=== PATIENT | female | born 1955 | race Caucasian/White ===

== ENCOUNTER 2023-01-27 07:30 | Outpatient (REF) | payer MEDICARE, SELFPAY ==
--- NOTE | ~2023-01-27 | XR_ITS ---
EXAMINATION: XR KNEE, RIGHT CLINICAL INFORMATION: Pain right knee COMPARISON: None available. TECHNIQUE: Three views of the right knee. FINDINGS: Mineralization is normal. There is no fracture or dislocation. There is moderate joint space narrowing in the medial compartment with subchondral sclerosis and marginal osteophyte formation. There are marginal osteophytes in the patellofemoral compartment. No soft tissue swelling is seen. There is no evidence of joint effusion. XR/XR knee RT 3V IMPRESSION: Osteoarthritis in the medial and patellofemoral compartments.
== END 2023-01-27 07:31 | disposition home or self-care (01) ==
LOC: HO.HOSX 07:30
PROVIDERS: Visit Provider Orthopaedic Surgery
DX: M17.11 Unilateral primary osteoarthritis, right knee (principal)
CPT/HCPCS: 73562; 99212

== ENCOUNTER 2023-01-27 14:49 | Outpatient (AMB) | payer MEDICARE, SELFPAY ==
--- NOTE | 2023-01-27 15:01 | A.OFFVIS_ITS ---
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 Beltran for her right knee pain. States pain has been ongoing for the last 6 weeks and has worsen since. She explains she slipped getting on to a Jeep. States she felt pain right after. Currently her pain has improved. Pain was mainly behind her knee. Patient has hx of right knee injections in the past with Dr. Beltran with some relief. She wishes to hold off on surgery for as long as possible. Allergies No Known Allergies Allergy (Verified 01/27/23 15:49) Medication List - Last Reconciled 01/27/23 by Rashaad Beltran MD amlodipine 2.5 mg PO DAILY atenolol 25 mg PO DAILY atorvastatin 10 mg PO BEDTIME losartan 25 mg PO DAILY methenamine mandelate 1 g PO QID methylprednisolone (Medrol (Chao)) PO PER [facility] Social History (Updated 01/27/23 @ 15:52 [address] Jeane [address]ilar [facility]) Current occupational status: retired Physical Exam Vital Signs: BMI result Body Mass Index 42.9 Const Other: Well-nourished well-developed very friendly female awake alert and oriented x3 in no acute distress Extrem Other: Bilateral lower extremity examination shows good capillary refill, no skin lesions noted, normal sensation light touch Right knee examination shows a minimal effusion, palpable crepitus with range of motion, pain with range of motion, range of motion from -3 degrees to 115 degrees, no instability Results Reviewed Results Reviewed: X-rays of the patient's right knee show moderate diffuse joint space narrowing most significant in the medial compartment, subchondral sclerosis, no acute bony abnormalities Assessment & Plan Assessment & Plan (1) Arthritis of right knee: Code(s): M17.11 - Unilateral primary osteoarthritis, right knee Plan Mrs. Espinosa presents with right knee pain due to degenerative joint disease. I had a lengthy discussion with the patient regarding the treatment options. She wishes to hold off on surgery for as long as possible. I agree with this plan. I did give her a prescription for a Medrol Dosepak. Activity modifications were discussed at length with the patient. She wishes to hold off on a cortisone injection for now. I will see her back in a few weeks prior to her trip to [place]. If she has continued significant discomfort at that time we will further discuss the risks and benefits of a cortisone injection. She will contact me prior to that time should any questions or concerns arise. I spent 22 minutes in reviewing the patient's records and imaging studies, seeing the patient and documenting in the medical record. Orders: Orders XR knee RT 3V 01/27/23 M25.561 - Pain in right knee Medications: New methylprednisolone (Medrol (Chao)) PO PER PKG DIR 21 ea 0RF Coding Level of Care Code Est Pt Level 2 (72592) Diagnoses Arthritis of right knee M17.11
[2023-01-27 15:47] VITALS: BMI 42.9
== END 2023-01-27 16:19 | disposition home or self-care (01) ==
PROVIDERS: Visit Provider Orthopaedic Surgery
DX: M17.11 Unilateral primary osteoarthritis, right knee (principal)
CPT/HCPCS: 99212

== ENCOUNTER 2023-02-08 10:59 | Outpatient (AMB) | payer MEDICARE, SELFPAY ==
--- NOTE | 2023-02-08 11:06 | A.OFFVIS_ITS ---
Intake Vital Signs 02/08/23 11:10 Height 5 ft 1 in Weight 227 lb BMI 42.9 Intake Visit Reasons: OV- Right knee and leg pain/ soft tissue Intake Note: Елена 67 year old female presents today for a follow up of right knee pain. Patient reports pain has improved after being on a Medrol Dosepak. She has returned to working out at the gym 3 times per week. She denies any locking or giving way. She denies any fevers or chills. Allergies No Known Allergies Allergy (Verified 02/08/23 11:11) Medication List - Last Reconciled 02/08/23 by Rashaad Beltran MD amlodipine 2.5 mg PO DAILY atenolol 25 mg PO DAILY atorvastatin 10 mg PO BEDTIME losartan 25 mg PO DAILY methenamine mandelate 1 g PO QID PFSH Social History Current occupational status: retired Physical Exam Vital Signs: BMI result Body Mass Index 42.9 Const Other: Well-nourished well-developed very friendly female awake alert and oriented x3 in no acute distress Extrem Other: Bilateral lower extremity examination shows good capillary refill, no skin lesio ns noted, normal sensation light touch Right knee examination shows a minimal effusion, mild crepitus with range of motion, mild discomfort with range of motion, range of motion from -3 degrees to 120 degrees, no instability Results Reviewed Results Reviewed: X-rays of the patient's right knee show joint space narrowing, subchondral sclerosis, no acute bony abnormalities Assessment & Plan Assessment & Plan (1) Arthritis of right knee: Code(s): M17.11 - Unilateral primary osteoarthritis, right knee Plan: Ms. Espinosa presents with intermittent discomfort in her right knee due to degenerative joint disease. I had a lengthy discussion with the patient regarding the treatment options. At this point patient's symptoms are tolerable to her. We will hold off on a cortisone injection. She will continue with her exercise program and activity modifications. She will follow up with me on an as-needed basis should her symptoms worsen in any way. The I spent 21 minutes in reviewing the patient's records and imaging studies, seeing the patient and documenting in the medical record. Coding Level of Care Code Est Pt Level 2 (95425) Diagnoses Arthritis of right knee M17.11
[2023-02-08 11:10] VITALS: BMI 42.9
== END 2023-02-08 11:24 | disposition home or self-care (01) ==
PROVIDERS: Visit Provider Orthopaedic Surgery
DX: M17.11 Unilateral primary osteoarthritis, right knee (principal)
CPT/HCPCS: 99212

== ENCOUNTER → 2023-02-08 10:59 | Outpatient (BNVA) | payer MEDICARE, SELFPAY | PROVIDERS: Visit Provider Orthopaedic Surgery | DX: M17.11 Unilateral primary osteoarthritis, right knee (principal) | CPT/HCPCS: 99212 ==

== ENCOUNTER 2025-04-24 07:31 | Outpatient (REF) | payer MEDICARE, SELFPAY ==
--- NOTE | ~2025-04-24 | XR_ITS ---
EXAMINATION: X-ray lumbar spine X-ray pelvis CLINICAL INFORMATION: [Low back pain. Hip pain. COMPARISON: None TECHNIQUE: Lumbar spine 3 views. Pelvis 1 view. FINDINGS: Lumbar spine: Bone mineralization is decreased. Posterior spinal fusion hardware at L4-5. Intact hardware. No suspicious perihardware lucencies. Mild L4-5 and mild L5-S1 anterolisthesis. Vertebral body heights are maintained. No evidence of acute fracture. Multilevel disc degeneration, more prominent findings at T12-L1, L1-2, L3-4, L4-5.. Multilevel facet degeneration Gastric band present, with tubing projects over the abdomen. Nonobstructive bowel gas pattern. Pelvis: Bone mineralization is decreased. No evidence of acute fracture or dislocation. Hip joint spaces are maintained. Bilateral SI joint arthritis. Mild symphysis pubis degeneration. No acute pelvic fracture seen. XR/XR lumbar spine 2-3V IMPRESSION: Lumbar spine: 1. No acute findings 2. Posterior spinal fusion at L4-5. No findings to suggest hardware complications. 3. Lumbar spondylosis. Pelvis: 1. No acute findings. 2. Degenerative changes as above. Electronically signed by: Matthew Maldonado MD 04/26/2025 11:31 AM [facility]
--- NOTE | ~2025-04-24 | XR_ITS ---
EXAMINATION: X-ray lumbar spine X-ray pelvis CLINICAL INFORMATION: [Low back pain. Hip pain. COMPARISON: None TECHNIQUE: Lumbar spine 3 views. Pelvis 1 view. FINDINGS: Lumbar spine: Bone mineralization is decreased. Posterior spinal fusion hardware at L4-5. Intact hardware. No suspicious perihardware lucencies. Mild L4-5 and mild L5-S1 anterolisthesis. Vertebral body heights are maintained. No evidence of acute fracture. Multilevel disc degeneration, more prominent findings at T12-L1, L1-2, L3-4, L4-5.. Multilevel facet degeneration Gastric band present, with tubing projects over the abdomen. Nonobstructive bowel gas pattern. Pelvis: Bone mineralization is decreased. No evidence of acute fracture or dislocation. Hip joint spaces are maintained. Bilateral SI joint arthritis. Mild symphysis pubis degeneration. No acute pelvic fracture seen. XR/XR pelvis 1-2V IMPRESSION: Lumbar spine: 1. No acute findings 2. Posterior spinal fusion at L4-5. No findings to suggest hardware complications. 3. Lumbar spondylosis. Pelvis: 1. No acute findings. 2. Degenerative changes as above. Electronically signed by: Matthew Maldonado MD 04/26/2025 11:31 AM [facility]
--- OUTSIDE RECORDS SUMMARY | 2025-04-27 07:33 | XMS_ITS | Encounter Summary ---
Author Organization [facility] Address [address] [place] [address] Care Team Providers Care Splicing Machine Operator Automatic Name Role Phone Ellie Avalos NP Primary Care Provider [phone] Encounter Details Date Type Department Care Team ([facility] st Contact Info) Description 07/25/2024 Scanned Document [facility] [place] [address] Lawson Wing MD [address] [place] [address] Social History Tobacco Use Types Packs/Day Years [...] on filedocumented in this encounter Care Teams Splicing Machine Operator Automatic Relationship Specialty Start Date End Date Ellie Avalos NP PCP - General 05/29/24 documented as of this encounter
--- OUTSIDE RECORDS SUMMARY | 2025-04-27 07:34 | XMS_ITS | Clinical Summary ---
Author Organization [facility] Address [address] [place] [address] Care Team Providers Care Length Control Tester Name Role Phone Oneal Bentley MD Primary Care Provider [phone] Allergies Active Allergy Reactions Criticality Noted Date [...] age to complete this topic Care Teams Length Control Tester Relationship Specialty Start Date End Date Oneal Bentley MD NPI: [id number] [place] [id number] PCP - General Internal Medicine 08/18/17
--- OUTSIDE RECORDS SUMMARY | 2025-04-27 07:34 | XMS_ITS | Clinical Summary ---
Author Organization [facility] Address [address] [place] [address] Phone Care Team Providers Care Transportation Dispatcher Name Role Phone Ellie Avalos NP Primary Care Provider [phone] Allergies Active Allergy Reactions Criticality Noted Date Comments Adhesive Tape-Silicones 08/18/2017 Ragweed 2022 Medications nystatin (MYCOSTATIN) 100,000 unit/gram powder Apply topically 2 (two) times a day if needed. 12/27/19 24 Active diclofenac (VOLTAREN) 1 % topical gel Apply 4 g topically 2 times daily as needed (arthritis pain). 06/28/19 24 Active methenamine hippurate (HIPREX) 1 gram tablet TAKE 1 TABLET TWICE DAILY WITH MEALS 180 tablet 10/19/19 25 Active amLODIPine (NORVASC) 5 mg tablet TAKE 1 TABLET DAILY 90 tablet 1 01/15/20 25 Active atenoloL (TENORMIN) 50 mg tablet TAKE 1 TABLET DAILY 90 tablet 1 02/13/20 25 Active atorvastatin (LIPITOR) 20 mg tablet TAKE 1 TABLET DAILY 90 tablet 1 03/04/20 25 Active losartan-hydro CHLOROthiazide (HYZAAR) 100-12.5 mg per tablet TAKE 1 TABLET DAILY 90 tablet 1 04/15/20 25 Active losartan-hydro CHLOROthiazide (HYZAAR) 100-12.5 mg per tablet TAKE 1 TABLET DAILY 90 tablet 1 11/27/19 25 025 Discontinued Active Problems Problem Noted Date Diagnosed Date Von Willebrand disease (CMS/HCC V24, CMS/[facility] V28 ) 06/29/2024 Essential (primary) hypertension 06/23/2022 Mixed hyperlipidemia 06/23/2022 Osteopenia 06/23/2022 Primary osteoarthritis of right knee 06/26/2019 Acute injury of right knee cartilage 01/04/2019 Instability of right knee joint 01/04/2019 Immunizations Immunization Administration Dates Next Due COVID-19 (Pfizer/Comirnaty) 12yo and older 01/28 Influenza, Unspecified 02/29/2024,01/28/2023,07/2021 Pfizer SARS-CoV-2 COVID-19, mRNA, LNP-S, preservative free 02/29/2024,01/28/2023,04/08/2022 Pneumococcal conjugate 20 va lent (Prevnar 20, PCV 20) 2mo and older 12/22/2022 Tdap Tetanus diptheria acell ular pertussis (Boostrix; Adacel) 7yo and older 06/23/2022 Surgical History Surgery Date Site/Laterality Comments APPENDECTOMY 03/07/2022 PROCEDURE: HISTORICAL APPENDECTOMY HYSTERECTOMY 2011 PROCEDURE: HISTORICAL HYSTERECTOMY OTHER SURGICAL HISTORY 2007 PROCEDURE: LUMBAR SPINE FUSION, LAT TRANSVERSE OTHER SURGICAL HISTORY 2015 PROCEDURE: OR OPEN TREATMENT CALCANEAL FRACTURE FOOT SURGERY 06/30/2024 - 07/27/2024 Right hammer toe correction COLONOSCOPY 01/11/2022 Medical History Medical History Date Comments Essential (primary) hypertension DX:Essential (primary) hypertension Mixed hyperlipidemia DX:Mixed hy perlipidemia Spinal stenosis of lumbar region DX:Spinal stenosis of lumbar region Leiomyoma of uterus DX:Leiomyoma of uterus Osteopenia DX:Osteopenia Family History Medical History Relation Name Comments Breast cancer Cousin Hyperlipidemia Father Hypertension Father Other cancer Father Stroke Father Hyperlipidemia Mother Hypertension Mother Other cancer Mother Hyperlipidemia Sister Hypertension Sister Relation Name Status Comments Cousin Alive Father Mother Sister Social History Tobacco Use Types Packs/Day Years Used Date Smoking Tobacco: Never Smokeless Tobacco: Never Alcohol Use Standard Drinks/Week Comments Never 0 (1 standard drink = 0.6 oz pur e alcohol) Housing Instability Answer Date Recorde d Are you worried that in the next 2 months you may not have stable housing? No 06/27/2024 Food Access & Nutrition Answer Date Rec orded Do you have access to a vari ety of food including fruits and vegetables? Yes 06/27/2024 Access to Healthcare Answer Date Record ed Within the last 3 months, ho w many times did you visit the emergency department for your medical care? 0 06/27/2024 Health Literacy Answer Date Recorded How often do you need to hav e someone help you when you read instructions, pamphlets, or other written material from your doctor or pharmacy? Never 06/27/2024 Caregiver: How often do you need to have someone help you when you read instructions, pamphlets, or other written material from your doctor or pharmacy? Not on file 06/27/2024 Financial Risk Answer Date Recorded How hard is it for you to pa y for the very basics like food, housing, medical care, and air conditioning / heating? Not very hard 06/27/2024 Transportation Answer Date Recorded Has the lack of transportati on kept you from meetings, work, or from getting things needed for daily living? No Has the lack of transportati on kept you from medical appointments or from getting medications? No 06/27/2024 Social Isolation Answer Date Recorded How often do you feel lonely or isolated from th ose around you? Never 06/27/2024 Food Risk Answer Date Recorded Within the past 12 months we worried whether our food would run out before we got money to buy more. Never true 06/27/2024 Within the past 12 months th e food we bought just didn't last and we didn't have money to get more. Never true 06/27/2024 Dependent Care Answer Date Recorded Do you need help finding or paying for care for your loved ones. For example, child & adolescent psychiatrist or elderly care for an older adult? No 06/27/2024 Education Answer Date Recorded Do you think completing more education or training, like finishing a GED, going to college, or learning a trade, would be helpful for you? No 06/27/2024 Employment and Income Answer Date Recor ded During the last four weeks, have you been actively looking for work? No 06/27/2024 Living Situation Answer Date Recorded What is your living situation? Unrecognized valu e 06/27/2024 Comments No Sex and Gender Information Value Date Recorded Sex Assigned at Female 06/19/2024 4:02 PM EST Legal Sex Female 10:49 PM EST Gender Identity Female 06/19/2024 4:02 PM EST Sexual Orientation Straight 06/19/2024 4: 02 PM EST Obstetrics History Para Term AB IAB SAB Ectopic Multiple Livin g Live Births 1 Last Filed Vital Signs Vital Sign Reading Time Taken Comments Blood Pressure 134/85 01/01/2025 8:36 AM EDT A Pulse 66 01/01/2025 8:36 AM EDT Temperature 36.8 C (98.2 F) 07/05/2024 2:26 PM EST Respiratory Rate - - Oxygen Saturation 98% 07/05/2024 2:26 PM EST Inhaled Oxygen Concentration - - Weight 96.9 kg (213 lb 9.6 oz) 01/24/2025 12:41 PM EDT Height 154.9 cm (5' 1 ) 01/24/2025 12:41 PM EDT Body Mass Index 40.36 01/24/2025 12:41 PM EDT Plan of Treatment Upcoming Encounters Date Type Department Care Team (Late st Contact Info) Description 05/09/2025 8:00 AM EST Consult Gastroenterology - [address] [address] [facility] [address] [place] [phone] Damien Caicedo MD [address] [facility] [address] [place] [id number] 07/10/2025 9:00 AM EST [facility] [address] [place] [address] Ellie Avalos, VIKI [address] [place] [address] Health Maintenance Due Date Last Done Comments RSV Immunization Adult Patients (1 - Risk 50-74 years 1-dose series) 2005 Zoster Vaccines (1 of 2) 2005 Medicare Annual Wellness Visit 05/02/2022 COVID-19 Vaccine ( season) 2025 02/29/2024, 01/29/2024, 02/15/2023, Additional history exists Influenza Vaccine (#1) 2025 , 01/28/2023, 04/01/2022, Additional history exists Social Influencers of Health Screening 06/27/2025 06/27/2024 Falls Risk Assessment 01/01/2026 01/01/2025 Hypertension/CHF/CAD Annual BMP Blood Test 01/01/2026 01/01/2025, 06/29/2024, 12/21/2023, Additional history exists Breast Cancer Screening 06/27/2026 06/27/19, 06/02/2023, 05/25/2022, Additional history exists Colorectal Cancer Screening: Colonoscopy 01/11/2027 01/11/2022, 01/11/2022, 04/01/2011 Cholesterol Screening (Lipid Panel) 01/01/2030 01/01/2025, 06/29/2024, 12/21/2023, Additional history exists Osteoporosis Screening (Bone Density Screening) 05/25/2032 05/25/2022, 04/16/2020, 02/23/2018 DTaP,Tdap,and Td Vaccines (2 - Td or Tdap) 06/23/2032 06/23/2022 Hepatitis C Screening Completed 12/22/2022 Pneumococcal Vaccine: 50+ Years Completed 12/22/2022 Depression Screening Completed 01/01/2025 HIB Vaccines Aged Out No longer eligi ble based on patient's age to complete this topic HPV Vaccines Aged Out No longer eligi ble based on patient's age to complete this topic Hepatitis A Vaccines Aged Out No long er eligible based on patient's age to complete this topic Hepatitis B Vaccines Aged Out No long er eligible based on patient's age to complete this topic IPV Vaccines Aged Out No longer eligi ble based on patient's age to complete this topic MMR Vaccines Aged Out No longer eligi ble based on patient's age to complete this topic Meningococcal ACWY Vaccine Aged Out N o longer eligible based on patient's age to complete this topic Meningococcal B Vaccine Aged Out No l onger eligible based on patient's age to complete this topic RSV Immunization Patients Under 20 months Aged Out No longer eligible based on patient's age to complete this topic Varicella Vaccines Aged Out No longer eligible based on patient's age to complete this topic Procedures Procedure Name Priority Date/Time Associated Diagnosis Comments BASIC METABOLIC PANEL Routine 01/01/2025 8:50 AM EDT Essential (primary) hypertension LIPID PANEL WITH REFLEX TO DIRECT LDL Routine 01/01/2025 8:50 AM EDT Mixed hyperlipidemia MG MAMMO DIGITAL SCREENING W PENG BILAT Routine 06/27/2024 10:50 AM EST Encounter for screening mammogram for malignant neoplasm of breast HEPATITIS C SCREENING Routine 12/22/2022 [facility] DEXA AXIAL SKELETON Routine 05/25/2022 4:53 PM EST Other specified disorders of bone density and structure, right thigh COLONOSCOPY Routine 01/11/2022 from Last 3 Months or Most Recently Relevant to Health Maintenance Results * Lipid panel with reflex to direct LDL (01/01/2025 8:50 AM EDT) Cholesterol 141 0 - 200 mg/dL LAB CHEMISTRY METHOD 01/01/2025 12:13 PM [facility] Triglycerides 80 0 - 150 mg/dL LAB CHEMISTRY METHOD 01/01/2025 12:13 PM [facility] HDL 71 >=40 mg/dL LAB CHEMISTRY METHOD 01/01/2025 12:13 PM [facility] LDL Calculated 54 0 - 100 mg/dL LAB CHEMISTRY METHOD 01/01/2025 12:13 PM [facility] Comment:Estimated LDL Calcul ated using equation: Total cholesterol - HDL cholesterol - (Triglycerides/5) VLDL Cholesterol Philippe 16 mg/dL LAB CHEMISTRY METHOD 01/01/2025 12:13 PM [facility] Non HDL Chol. (LDL+VLDL) 70 <145 mg/dL LAB CHEMISTRY METHOD 01/01/2025 12:13 PM [facility] Chol/HDL Ratio 2.0 0.0 - 4.4 LAB CHEMISTRY METHOD 01/01/2025 12:13 PM [facility] Blood Venous blood specimen / Unknown Venipuncture / Unknown 01/01/2025 8:50 AM EDT 01/01/2025 8:50 AM EDT us Ellie Avalos NP LAB BLOOD ORDERABLES Final Resu lt [facility] [address] [place] [address], [place] [phone] * (ABNORMAL) Basic metabolic panel (01/01/2025 8:50 AM EDT) Sodium 138 133 - 145 mmol/L LAB CHEMISTRY METHOD 01/01/2025 12:13 PM [facility] Potassium 4.3 3.5 - 5.5 mmol/L LAB CHEMISTRY METHOD 01/01/2025 12:13 PM [facility] Chloride 104 96 - 110 mmol/L LAB CHEMISTRY METHOD 01/01/2025 12:13 PM [facility] CO2 28 21 - 32 mmol/L LAB CHEMISTRY METHOD 01/01/2025 12:13 PM [facility] Anion Gap 6 3 - 11 LAB CHEMISTRY METHOD 01/01/2025 12:13 PM [facility] Glucose 85 70 - 100 mg/dL LAB CHEMISTRY METHOD 01/01/2025 12:13 PM [facility] BUN 27(H) 5 - 25 mg/dL LAB CHEMISTRY METHOD 01/01/2025 12:13 PM [facility] Creatinine 0.88 0.50 - 1.10 mg/dL LAB CHEMISTRY METHOD 01/01/2025 12:13 PM [facility] eGFR 71 >=60 mL/min/1. 73m2 LAB CHEMISTRY METHOD 01/01/2025 12:13 PM [facility] Comment:Calculation based on the Chronic Kidney Disease Epidemiology Collaboration (CKD-EPI) equation refit without adjustment for race. BUN/Creatinine Ratio 30.7 LAB CHEMISTRY METHOD 01/01/2025 12:13 PM EDT [facility] Calcium 9.5 8.5 - 10.5 mg/dL LAB CHEMISTRY METHOD 01/01/2025 12:13 PM EDT [facility] Blood Venous blood specimen / Unknown Venipuncture / Unknown 01/01/2025 8:50 AM EDT 01/01/2025 8:50 AM EDT us Ellie Avalos [employer] LAB BLOOD ORDERABLES Final Resu lt [facility] [address] [place] [address], [place] [phone] * MG Mammo Digital Screening w Peng bilat (06/27/2024 10:50 AM EST) Anatomical Region Laterality Modality Breast Bilateral Mammography 06/27/2024 11:4 6 AM EST Impressions 06/27/2024 11:50 AM EST No mammographic evidence of malignancy. No suspicious interval change. A negative mammogram in the presence of a clinically suspicious palpable abnormality does not preclude the possibility of malignancy or alter the indications for biopsy. ASSESSMENT: BI-RADS 1: NEGATIVE RECOMMENDATION(S): 1: Routine screening mammogram BILATERAL in 1 year. -------- FINAL REPORT -------- Dictated By: Roger Rojas Dictated Date: 06/27/2024 11:46 ET Assigned Physician: Roger Rojas Reviewed and Electronically Signed By: Roger Rojas Signed Date: 06/27/2024 11:50 ET Workstation ID: [id number] Transcribed By: Self Edit Transcribed Date: 06/27/2024 11:46 ET Narrative 06/27/2024 11:50 AM EST EXAM: SCREENING MAMMOGRAPHY, BILATERAL HISTORY: SCREENING. No additional history. COMPARISON: 06/01/2023, 05/25/2022, 04/28/2021, 04/16/2020 TECHNIQUE: Synthesized CC and MLO projections of each breast. Tomosynthesis of each breast in the CC and MLO projections. ADDITIONAL IMAGING: None Computer-aided detection was employed with the iCAD profound AI 3-D. TISSUE DENSITY: The breasts are almost entirely fatty. (BI-RADS Category A) FINDINGS: RIGHT BREAST: No suspicious mass. No suspicious calcification. No distortion. No additional suspicious right breast findings LEFT BREAST: No suspicious mass. No suspicious calcification. No distortion. No additional suspicious left breast findings Procedure Note Roger Rojas MD - 06/27/2024 EXAM: SCREENING MAMMOGRAPHY, BILATERAL HISTORY: SCREENING. No additional history. COMPARISON: 06/01/2023, 05/25/2022, 04/28/2021, 04/16/2020 TECHNIQUE: Synthesized CC and MLO projections of each breast.Tomosynthesis of each breast in the CC and MLO projections. ADDITIONAL IMAGING: None Computer-aided detection was employed with the [employer] AI 3-D. TISSUE DENSITY: The breasts are almost entirely fatty. (BI-RADS CategoryA) FINDINGS: RIGHT BREAST: No suspicious mass. No suspicious calcification. No distortion. Noadditional suspicious right breast findings LEFT BREAST: No suspicious mass. No suspicious calcification. No distortion. Noadditional suspicious left breast findings IMPRESSION: No mammographic evidence of malignancy. No suspicious interval change. A negative mammogram in the presence of a clinically suspicious palpableabnormality does not preclude the possibility of malignancy or alter theindications for biopsy. ASSESSMENT: BI-RADS 1: NEGATIVE RECOMMENDATION(S): 1: Routine screening mammogram BILATERAL in 1 year. -------- FINAL REPORT -------- Dictated By: Roger Rojas Dictated Date: 06/27/2024 11:46 ET Assigned Physician: Roger Rojas Reviewed and Electronically Signed By: Roger Rojas Signed Date: 06/27/2024 11:50 ET Workstation ID: [id number] Transcribed By: Self Edit Transcribed Date: 06/27/2024 11:46 ET Ellie Avalos NP IMG BI PROCEDURES Final Result * Hepatitis C Screening (12/22/2022) Hepatitis C Screening negative Historical Provider HEALTH MAINTENANCE Final Result * [facility] DEXA AXIAL SKELETON (05/25/2022 4:53 PM EST) Anatomical Region Laterality Modality Mammography 05/25/2022 2:53 PM EST Narrative 05/25/2022 4:53 PM EST [facility] Diagnostic Imaging Department [address] [place] [id number] Patient: YIFAN ESPINOSA Mirtha /Age/Sex: 1955 - 67 - F Unit#: [id number] Location/Status: SPDIMAM/REG CLI Mnemonic[facility] Ordering Physician: AGUS CURIEL MD Kerrie Dexa Axial Skeleton - 05/25/22 1925 History: Low estrogen state due to menopause. Comparison: 04/16/20 Findings: Bone densitometry is performed utilizing dual energy x-ray absorptiometry (DXA) in the [employer]ikigDemyst[employer] unit. The lumbar spine and proximal femora are evaluated in the AP projection. The FRAX questionaire was completed. Lumbar spine data is discarded due to surgical hardware. The results indicate low bone mass (osteopenia), with a right femoral neck T- score of -2.2. The Z score is -1.4, indicating low bone mineral density for age. There has been no statistically significant change. The detailed DEXA report will be mailed to the referring physician's office. DualFemur FRAX: 10-year Probability of Fracture: Major Osteoporotic 16.8 percent Hip 2.8 percent. IMPRESSION: Osteopenia. [id number] Dictating Physician: KARI KANG MD Electronically Signed by: KARI KANG MD Dic Date/Time: 05/25/221651 Sign date/Time: 05/25/221652 Procedure Note Kari Kang MD - 07/01/2023 [facility] Diagnostic Imaging Department [address] [place] [id number] Patient: YIFAN ESPINOSA Mirtha Ansari/Age/Sex: 1955 - 67 - F Unit#: [id number] Location/Status: SPDIMAM/REG CLI Mnemonic/Ordering Site: [facility] Ordering Physician: AGUS CURIEL MD Kerrie Dexa Axial Skeleton - 05/25/22 - [id number] History: Low estrogen state due to menopause. Comparison: 04/16/20 Findings: Bone densitometry is performed utilizing dual energy x-ray absorptiometry(DXA) in the [employer]igDemyst[employer] unit. The lumbar spine and proximal femora areevaluated in the AP projection. The FRAX questionaire was completed. Lumbar spine data is discarded due to surgical hardware. The results indicate low bone mass (osteopenia), with a right femoral neckT- score of -2.2. The Z score is -1.4, indicating low bone mineral densityfor age. There has been no statistically significant change. The detailed DEXAreport will be mailed to the referring physician's office. DualFemur FRAX: 10-year Probability of Fracture: Major Osteoporotic 16.8 percent Hip 2.8 percent. IMPRESSION: Osteopenia. [id number] Dictating Physician: KARI KANG MD Electronically Signed by: KARI KANG MD Dic Date/Time: 05/25/221651 Sign date/Time: 05/25/221652 Agus Curiel MD IMG BI PROCEDURES Final Result * Colonoscopy (01/11/2022) HM Colonoscopy No Interpretation , Abstracted Anatomical Region Laterality Modality Other Historical Provider HEALTH MAINTENANCE Final Result from Last 3 Months or Most Recently Relevant to Health Maintenance Insurance [employer] MED[employer]ARE [employer]VANTAGE Care Teams Transportation Dispatcher Relationship Specialty Start Date End Date Ellie Avalos NP [address] [place] [address] PCP - General 06/22/22
--- OUTSIDE RECORDS SUMMARY | 2025-04-27 07:34 | XMS_ITS | Clinical Summary ---
Author Organization [facility] Address [address] [place] [address] Care Team Providers Care Material Reclaimer Name Role Phone Ellie Avalos NP Primary Care Provider [phone] Allergies No known active allergies Medications SUPPLY [...] topic Insurance [employer] MGD MEDICARE Care Teams Material Reclaimer Relationship Specialty Start Date End Date Ellie Avalos NP PCP - General 05/29/24
== END 2025-04-24 07:32 | disposition home or self-care (01) ==
LOC: HO.HOSX 07:31
PROVIDERS: Visit Provider Orthopaedic Surgery
DX: M70.61 Trochanteric bursitis, right hip (principal); M54.50 Low back pain, unspecified
CPT/HCPCS: 72100; 72170; 99212

== ENCOUNTER 2025-04-24 13:11 | Outpatient (AMB) | payer MEDICARE, SELFPAY ==
[2025-04-24 13:34] VITALS: BMI 42.9
--- NOTE | 2025-04-24 13:34 | A.OFFVIS_ITS ---
Vital Signs 04/24/25 13:34 Height 5 ft 1 in Weight 227 lb BMI 42.9 Intake Visit Reasons: New Prob-upper hip pain, Low back pain Intake Note: Елена is a 70 year old female who presents with complaints of intermittent low back pain as well as pain along the lateral aspect of her right hip. The patient did undergo low back surgery by Dr. Adkins approximately 20 years ago. She describes her back pain as achy in nature. She denies any weakness in either lower extremity. The patient knows a says her discomfort most when going up and down stairs and trying to sleep. She denies any groin pain. Allergies No Known Allergies Allergy (Verified 04/24/25 13:38) Medication List - Last Reconciled 04/24/25 by Rashaad Beltran MD amlodipine 2.5 mg PO DAILY atenolol 25 mg PO DAILY atorvastatin 10 mg PO BEDTIME losartan 25 mg PO DAILY methenamine mandelate 1 g PO QID [facility] Medical History (Updated 04/24/25 @ 15:36 by Rashaad Beltran MD) Hip pain Social History (Updated 04/24/25 @ 13:39 by ZARA Calhoun) Patient Tobacco Use Status: Never used Tobacco Current occupational status: retired Physical Exam Vital Signs: BMI result Body Mass Index 42.9 Back/Spine/Pelvis Other: Low back examination shows mild paraspinal muscle tenderness, negative straight leg raise test bilaterally at 70 degrees Extrem Other: Right hip examination shows slightly decreased range of motion when compared to her left hip, tenderness over her bursa, no overlying skin lesions Results Reviewed Results Reviewed: X-rays of the patient's bilateral hips taken today show mild diffuse joint space narrowing, no acute bony abnormalities X-rays of the patient's lumbar spine taken today show hardware from her previous surgery with no signs of loosening, moderate to severe diffuse degenerative disc disease, no acute bony abnormalities Assessment & Plan Assessment & Plan (1) Low back pain: Code(s): M54.50 - Low back pain, unspecified Category: Medical (2) Trochanteric bursitis, right hip: Code(s): M70.61 - Trochanteric bursitis, right hip Category: Medical Plan Mrs. Espinosa presents with pain along the lateral aspect of her right hip most likely due to greater trochanteric bursitis as well as intermittent low back pain due to degenerative disc disease. I had a lengthy discussion with the patient regarding the treatment options. We will hold off on a cortisone injection for now. I did give her a prescription for a Medrol Dosepak. She will continue with her home stretching program. She will contact me prior to her follow-up appointment in 4-6 weeks should her symptoms worsen in any way. Feel free to call me at any time should questions regarding her orthopedic management arise. I spent 20 minutes in reviewing the patient's records and imaging studies, seeing the patient and documenting in the medical record. Orders: Orders XR pelvis 1-2V Today M25.559 - Pain in unspecified hip XR lumbar spine 2-3V Today M54.50 - Low back pain, unspecified Medications: New methylprednisolone (Medrol (Chao)) PO PER PKG DIR 21 ea 0RF Coding Level of Care Code Est Pt Level 3 (60775) Complex visit Add On G2211 Diagnoses Low back pain M54.50 Trochanteric bursitis, right hip M70.61
--- OUTSIDE RECORDS SUMMARY | 2025-04-24 16:18 | XMS_ITS | Clinical Summary ---
Author Organization [facility] Address [address] [place] [address] Care Team Providers Care Internet Marketing Analyst Name Role Phone Oneal Bentley MD Primary Care Provider [phone] Allergies Active Allergy Reactions Criticality Noted Date Comments Adhesive Tape 08/18/2017 Nka Medications Medication Sig Dispensed Refills Start Date End Date Status ibuprofen (ADVIL,MOTRIN) 800 MG tablet ibuprofen 800 mg tablet 0 Active atenolol (TENORMIN) tablet 50 mg atenolol 50 mg tablet 0 Active losartan-hydrochloro thiazide (HYZAAR) 100-12.5 MG per tablet losartan 100 mg-hydrochlorothiazi de 12.5 mg tablet 0 Active methenamine (HIPREX) 1 g tablet methenamine hippurate 1 gram tablet 0 Active CRANBERRY CONCENTRATE PO Take by mouth. 0 Active Active Problems Problem Noted Date Diagnosed Date Primary osteoarthritis of right knee 06/26/2019 Acute injury of right knee cartilage 01/04/2019 Instability of right knee joint 01/04/2019 Family History Medical History Relation Name Comments Cancer Father Clotting disorder Father Heart disease Father Hypertension Father Cancer Mother Hypertension Mother Relation Name Status Comments Father Mother Social History Tobacco Use Types Packs/Day Years Used Date Smoking Tobacco: Never Smokeless Tobacco: Never Tobacco Cessation:Counseling Given: No Alcohol Use Standard Drinks/Week Comments No 0 (1 standard drink = 0.6 oz pur e alcohol) Sex and Gender Information Value Date Recorded Sex Assigned at Not on file Gender Identity Not on file Sexual Orientation Not on file Job Start Date Occupation Industry Not on file Not on file Not on file Last Filed Vital Signs Vital Sign Reading Time Taken Comments Blood Pressure - - Pulse - - Temperature - - Respiratory Rate - - Oxygen Saturation - - Inhaled Oxygen Concentration - - Weight 108 kg (238 lb) 04/10/2019 8:46 AM EST Height 157.5 cm (5' 2 ) 04/10/2019 8:46 AM EST Body Mass Index 43.53 04/10/2019 8:46 AM EST Plan of Treatment Health Maintenance Due Date Last Done Comments Hepatitis C Screening 1955 COVID-19 Vaccine (#1) 1955 Depression Screening 1967 BMI Counseling 1973 Preventative Health Evaluation 1973 DTap / Tdap / Td (1 - Tdap) 1974 Colon Cancer Screening (Colonoscopy) 2000 Breast Cancer Screening (Mammogram) 2005 Shingrix-Zoster Vaccine (1 of 2) 2005 Fall Risk Assessment 2020 Osteoporosis Screening (DEXA Scan) 2020 Pneumococcal Vaccine (1 of 1 - PCV) 2020 Influenza Vaccine (#1) 2025 RSV Adult > 60+ Yrs or Pregn ant (1 - 1-dose 75+ series) 2030 Hepatitis B Vaccines Aged Out No long er eligible based on patient's age to complete this topic RSV Ped < 20 months Aged Out No longe r eligible based on patient's age to complete this topic Care Teams Internet Marketing Analyst Relationship Specialty Start Date End Date Oneal Bentley MD NPI: [id number] [place] [id number] PCP - General Internal Medicine 08/18/17
--- OUTSIDE RECORDS SUMMARY | 2025-04-24 16:18 | XMS_ITS ---
Author Name [facility] Organization Unknown History of Medication Use Medication Directions Dispensed Refills Start Date End Date Stat us traMADol (ULTRAM) 50 MG tablet Take 1 tablet (50 mg total) by mouth 4 times daily (every 6 hours) as needed for moderate pain or severe pain. 07/23/2024 active acetaminophen (TYLENOL) 500 MG tablet Take 1 tablet (500 mg total) by mouth 4 times daily (every 6 hours) as needed for mild pain or moderate pain. 07/20/2024 active aspirin enteric coated (ECOTRIN LOW STRENGTH) 81 MG EC tablet Take 1 tablet (81 mg total) by mouth 2 times a day. With Food Post op 07/20/2024 active SUPPLY DME MISC Rx: Stair Lift at home Dx: Foot & Ankle surgery, patient to remain non weight bearing, needs assistance to get to her bedroom & bathroom at home 07/06/2024 active Problems Problem Status Onset Date Problem Type Date of Resolution Source Osteoarthritis of ankle and foot, right active EncounterDiagnosisAct [facility] Hammertoe of right foot [facility] Encounters Encounter Type Encounter Reason Primary Diagnosis Location Date Ambulatory [facility] 10/02/2024 Ambulatory Primary osteoarthritis, right ankle and foot Primary osteoarthritis, right ankle and foot [facility] 10/02/2024 Ambulatory [facility] 09/04/2024 Ambulatory Other hammer toe(s) (acquired), right foot Other hammer toe(s) (acquired), right foot [facility] 09/04/2024 Ambulatory [facility] 08/14/2024 Ambulatory Pain in right ankle and joints of right foot Pain in right ankle and joints of right foot [facility] 08/14/2024 Ambulatory Primary osteoarthritis, right ankle and foot Primary osteoarthritis, right ankle and foot [facility] 07/31/2024 Ambulatory [facility] Primary osteoarthritis, right ankle and foot [facility] 07/25/2024 Ambulatory [facility] 05/29/2024 Ambulatory Primary osteoarthritis, right ankle and foot Primary osteoarthritis, right ankle and foot [facility] 05/29/2024 Ambulatory [facility] 12/08/2022 Care Team Organization Name Specialty Phone Email Start Date End [facility] 06/11/2024 [facility] 06/03/2024 10/31/2024 [facility] Primary [facility] 05/29/2024 [facility] 04/30/2024
--- OUTSIDE RECORDS SUMMARY | 2025-04-24 16:18 | XMS_ITS | Clinical Summary ---
Author Organization [facility] Address [address] [place] [address] Care Team Providers Care Sheep Farmer Name Role Phone Ellie Avalos NP Primary Care Provider [phone] Allergies No known active allergies Medications SUPPLY DME MISCIndications :Osteoarthritis of ankle and foot, right Rx: Stair Lift at home Dx: Foot & Ankle surgery, patient to remain non weight bearing, needs assistance to get to her bedroom & bathroom at home 1 each 5 Active acetaminophen (TYLENOL) 500 MG tabletIndicatio ns:Osteoarthrit is of ankle and foot, right Take 1 tablet (500 mg total) by mouth 4 times daily (every 6 hours) as needed for mild pain or moderate pain. 84 tablet 5 Active aspirin enteric coated (ECOTRIN LOW STRENGTH) 81 MG EC tabletIndicatio ns:Osteoarthrit is of ankle and foot, right Take 1 tablet (81 mg total) by mouth 2 times a day. With Food Post op 42 tablet 5 Active traMADol (ULTRAM) 50 MG tabletIndicatio ns:Osteoarthrit is of ankle and foot, right Take 1 tablet (50 mg total) by mouth 4 times daily (every 6 hours) as needed for moderate pain or severe pain. 28 tablet 5 Active Active Problems No known active problems Social History Tobacco Use Types Packs/Day Years Used Date Smoking Tobacco: Never Assessed Comments Unknown Sex and Gender Information Value Date Recorded Sex Assigned at Female 04/30/2024 2:51 PM EST Legal Sex Female 10:12 AM EDT Gender Identity Female 04/30/2024 2:51 PM EST Sexual Orientation Other 04/30/2024 2: 51 PM EST Plan of Treatment Health Maintenance Due Date Last Done Comments Advance Care Planning 1955 Hepatitis C Virus Screening 1955 DTaP/Tdap/Td Vaccines (1 - Tdap) 1974 Mammogram 1995 Colonoscopy 2000 Pneumococcal Vaccines 50+ (1 of 1 - PCV) 2005 RSV Vaccine 50 years and older and Patients (1 - Risk 50-74 years 1-dose series) 2005 Zoster (Shingles) Vaccine (1 of 2) 2005 DXA Bone Density (Females,Ages 65 and older) 2020 Influenza Vaccine 12/28/2024 02/29/2024, , 01/28/2023, Additional history exists COVID-19 Vaccine ( season) 2025 02/29/2024, 01/29/2024, 01/28/2023, Additional history exists Hepatitis B Vaccines Aged Out No long er eligible based on patient's age to complete this topic Insurance [employer] M[employer] MEDICARE Care Teams Sheep Farmer Relationship Specialty Start Date End Date Ellie Avalos NP PCP - General 05/29/24
--- OUTSIDE RECORDS SUMMARY | 2025-04-24 16:18 | XMS_ITS | Encounter Summary ---
Author Organization [facility] Address [address] [place] [address] Care Team Providers Care Copywriter Name Role Phone Ellie Avalos NP Primary Care Provider [phone] Encounter Details Date Type Department Care Team ([facility] st Contact Info) Description 07/25/2024 Scanned Document [facility] [place] [address] Lawson Wing MD [address] [place] [address] Social History Tobacco Use Types Packs/Day Years Used Date Smoking Tobacco: Never Assessed Comments Unknown Sex and Gender Information Value Date Recorded Sex Assigned at Female 04/30/2024 2:51 PM EST Legal Sex Female 10:12 AM EDT Gender Identity Female 04/30/2024 2:51 PM EST Sexual Orientation Other 04/30/2024 2: 51 PM EST documented as of this encounter Plan of Treatment Not on file documented as of this encounter Visit Diagnoses Not on filedocumented in this encounter Care Teams Copywriter Relationship Specialty Start Date End Date Ellie Avalos NP PCP - General 05/29/24 documented as of this encounter
== END 2025-04-24 14:05 | disposition home or self-care (01) ==
LOC: HO.HOS 13:12
PROVIDERS: Visit Provider Orthopaedic Surgery
DX: M54.50 Low back pain, unspecified (principal); M70.61 Trochanteric bursitis, right hip
CPT/HCPCS: 99213; G2211

== ENCOUNTER → 2025-04-24 13:29 | Outpatient (BNV) | payer MEDICARE, SELFPAY | PROVIDERS: Visit Provider Radiology Diagnostic Ultrasound | DX: M47.817 Spondylosis without myelopathy or radiculopathy, lumbosacral region (principal); M43.26 Fusion of spine, lumbar region | CPT/HCPCS: 72100; 72170 ==